=== PATIENT | male | born 1990 | race African-American/Black ===

== ENCOUNTER 2019-03-24 16:28 | Inpatient (IN) | payer OTHER ==
[2019-03-24 20:59] VITALS: BMI 23.2
--- NOTE | 2019-03-24 22:11 | HP ---
CIWA Score Nausea/Vomitin-No Nausea/No Vomiting Muscle Tremors: 1-None Visible, but [place] Anxiety: 4-Mod. Anxious/Guarded Agitation: 4-Moderately Restless Paroxysmal Sweats: 3 Orientation: 0-Oriented Tacttile Disturbances: 2-Mild Itch/Numbness/Burn Auditory Disturbances: 0-None Visual Disturbances: 2-Mild Sensitivity Headache: 2-Mild CIWA-Ar Total Score: 18 - Admission Criteria [facility] Guidelines: Admission for Medically Managed Detox: Requires at least one of the followin. CIWA greater than 12 2. Seizures within the past 24 hours 3. Delirium tremens within the past 24 hours 4. Hallucinations within the past 24 hours 5. Acute intervention needed for co occurring medical disorder 6. Acute intervention needed for co occurring psychiatric disorder 7. Severe withdrawal that cannot be handled at a lower level of care (continued vomiting, continued diarrhea, abnormal vital signs) requiring intravenous medication and/or fluids 8. Patient presents the following: CIWA greater than 12 Admission Criteria Met: Admission criteria met Admission ROS [facility] Chief Complaint: C/O WORSENING WITHDRAWAL SX'S. SEEKING DETOX TXMENT. Allergies/Adverse Reactions: Allergies Allergy/AdvReac Type Severity Reaction Status Date / Time No Known Allergies Allergy Verified 03/24/19 20:46 History of Present Illness: 28 Y.O. MALE WITH HX/O ALCOHOLISM HERE FOR DETOX. CLIENT IS REFERRED BY HIS RESIDENTIAL PROGRAM. THIS IS HIS FIRST ADMISSION HERE. HE REPORTS DRINKING ALCOHOL DAILY. LAST DRINK 1 DAY AGO. PRESENTS WITH C/O WITHDRAWAL SX'S. CIWA 18. REPORTS LONGEST CLEAN TIME 2 WEEKS. DENIES HX/O SEIZURES, BLACKOUTS, SI/HI/ AVH. TRANSITIONAL HOUSING, UNEMPLOYED, DENIES LEGALS Exam Limitations: No Limitations - Ebola screening Have you traveled outside of the country in the last 21 days: No Have you had contact with anyone from an Ebola affected area: No Have you been sick,other than usual withdrawal symptoms: No Do you have a fever: No - Review of Systems Constitutional: Chills, Loss of Appetite, Night Sweats, Changes in sleep EENT: reports: Dental Problems (MISSING TEETH) Respiratory: reports: No Symptoms reported Cardiac: reports: No Symptoms Reported GI: reports: Constipated, Poor Appetite, Poor Fluid Intake : reports: No Symptoms Reported Musculoskeletal: reports: No Symptoms Reported Integumentary: reports: No Symptoms Reported Neuro: reports: No Symptoms reported Endocrine: reports: No Symptoms Reported Hematology: reports: No Symptoms Reported Psychiatric: reports: Orientated x3, Anxious Other Systems: Reviewed and Negative Patient History - Patient Medical History Hx Anemia: No Hx Asthma: No Hx Chronic Obstructive Pulmonary Disease (COPD): No Hx Cancer: No Hx Cardiac Disorders: No Hx Congestive Heart Failure: No Hx Hypertension: No Hx Hypercholesterolemia: No Hx Pacemaker: No HX Cerebrovascular Accident: No Hx Seizures: No Hx Dementia: No Hx Diabetes: No Hx Gastrointestinal Disorders: No Hx Liver Disease: No Hx Genitourinary Disorders: No Hx Sexually Transmitted Disorders: No Hx Renal Disease (ESRD): No Hx Thyroid Disease: No Hx Human Immunodeficiency Virus (HIV): Yes ([id number] TRANSMISSION) Hx Hepatitis C: No Hx Depression: No Hx Suicide Attempt: No Hx Bipolar Disorder: No Hx Schizophrenia: No - Patient Surgical History Past Surgical History: No - PPD History Previous Implant?: Yes Documented Results: Negative w/o proof Implanted On Prior [facility] Admission?: No PPD to be Administered?: Yes - Smoking Cessation Smoking history: Current every day smoker Have you smoked in the past 12 months: Yes Aproximately how many cigarettes per day: 20 Cigars Per Day: 0 Hx Chewing Tobacco Use: No Initiated information on smoking cessation: Yes 'Breaking Loose' booklet given: 03/24/19 - Substance & Tx. History Hx Alcohol Use: Yes Hx Substance Use: Yes Substance Use Type: Alcohol, Marijuana Hx Substance Use Treatment: Yes ([facility]) - Substances abused Crystal meth Substance route: Smoking Frequency: 1-3 times last 30 days Amount used: $125/DAY Age of first use: 26 Date of last use: 03/20/19 Alcohol Substance route: Oral Frequency: Daily Amount used: 1/2 PINT TEQUILA/4 BEERS Age of first use: 22 Date of last use: 03/23/19 Marijuana/Hashish Substance route: Smoking Frequency: Daily Amount used: 8TH Age of first use: 22 Date of last use: 03/24/19 Family Disease History - Family Disease History Family Disease History: Other: Father (HX/O DRUGS), Mother (HX/O CRACK) Admission Physical Exam [facility] - Vital Signs Vital Signs: Vital Signs - 24 hr 03/24/19 20:53 Temperature 99.0 F Pulse Rate 64 Respiratory 16 Rate Blood Pressure 142/92 - Physical General Appearance: Yes: Appropriately Dressed, Anxious HEENTM: Yes: EOMI, Normocephalic, Normal Voice, GEOVANNA, Pharynx Normal Respiratory: Yes: Chest Non-Tender, Lungs Clear, Normal Breath Sounds, No Respiratory Distress, No Accessory Muscle Use Neck: Yes: No masses,lesions,Nodules, Supple, Trachea in good position Breast: Yes: Breast Exam Deferred Cardiology: Yes: Regular Rhythm, Regular Rate, S1, S2 Abdominal: Yes: Normal Bowel Sounds, Non Tender, Soft, Increased Bowel Sounds Genitourinary: Yes: Within Normal Limits Back: Yes: Normal Inspection Musculoskeletal: Yes: full range of Motion, Gait Steady Extremities: Yes: Normal Range of Motion, Non-Tender, Tremors (FELT) Neurological: Yes: Fully Oriented, Alert, Motor Strength 5/5, Depressed Affect Integumentary: Yes: Dry, Warm Lymphatic: Yes: Within Normal Limits - Diagnostic (1) Alcohol dependence with uncomplicated withdrawal Current Visit: Yes Status: Acute (2) Cannabis abuse, uncomplicated Current Visit: Yes Status: Acute (3) Nicotine dependence Current Visit: Yes Status: Chronic Qualifiers: Nicotine product type: cigarettes Substance use status: uncomplicated Qualified Code(s): F17.210 - Nicotine dependence, cigarettes, uncomplicated (4) HIV (human immunodeficiency virus infection) Current Visit: Yes Status: Chronic Qualifiers: HIV symptom status: unspecified Qualified Code(s): B20 - Human immunodeficiency virus [HIV] disease (5) At risk for dehydration due to poor fluid intake Current Visit: Yes Status: Acute Cleared for Admission S - Detox or Rehab [facility] Level of Care: Medically Managed Detox Regimen/Protocol: Librium Claeared for Rehab Admission: No Breathalyzer - Breathalyzer Breathalyzer: 0 Urine Drug Screen - Test Device Lot number: [id number] Expiration date: 10/17/20 - Control Is test valid?: Yes - Results Drug screen NEGATIVE: No Urine drug screen results: THC-Marijuana Inpatient Rehab Admission - Rehab Decision to Admit Inpatient rehab admission?: No
[2019-03-24] MEDS ORDERED: MAGNESIUM HYDROX 2400MG/30ML ORAL SUSPENSION 30 ML CUP PO PRN (22:16)
[2019-03-24] MEDS ORDERED: hydrOXYzine PAMOATE 25 MG CAPSULE (FP) PO PRN (22:16)
[2019-03-24] MEDS ORDERED: P-EPHED 60MG/TRIPROLIDI 2.5MG TABLET PO PRN (22:16)
[2019-03-24] MEDS ORDERED: ONDANSETRON *ODT* 4 MG TABLET SL PRN (22:16)
[2019-03-24] MEDS ORDERED: ACETAMINOPHEN 325 MG TABLET (FP) PO PRN ×2 (22:16)
[2019-03-24] MEDS ORDERED: MAG HYDROX/AL HYDROX/SIMETH 30 ML UNIT-DOSE CUP PO PRN (22:16)
[2019-03-24] MEDS ORDERED: MELATONIN 5 MG TABLETS PO PRN (22:16)
[2019-03-24] MEDS ORDERED: IBUPROFEN 400 MG TABLET (FP) PO PRN ×2 (22:16)
[2019-03-24] MEDS ORDERED: BISMUTH SUBSALICYLATE 524 MG/30 ML UD PO PRN (22:16)
[2019-03-24] MEDS ORDERED: MAGNESIUM CITRATE 300 ML BOTTLE PO PRN (22:16)
[2019-03-24] MEDS ORDERED: NICOTINE POLACRILEX 2 MG GUM BUC PRN (22:16)
[2019-03-24] MEDS ORDERED: METHOCARBAMOL 500 MG TABLET PO PRN (22:16)
[2019-03-24] MEDS ORDERED: MENTHOL/PHENOL 1 EACH UD MM PRN (22:16)
[2019-03-24] MEDS ORDERED: chlordiazePOXIDE HCL 10 MG CAPSULE PO PRN ×2 (22:16→23:46)
[2019-03-24] MEDS ORDERED: guaiFENesin 200 MG/10 ML 10 ML UNIT-DOSE CUPS PO PRN (22:16)
[2019-03-24] MEDS ORDERED: DICYCLOMINE HCL 10 MG CAPSULE PO PRN (22:16)
[2019-03-25] MEDS: chlordiazePOXIDE HCL 25 MG CAPSULE PO SCH ×5 (02:52→12:53)
[2019-03-25] MEDS ORDERED: chlordiazePOXIDE 5 MG CAPSULE PO SCH (05:00)
--- NOTE | 2019-03-25 08:26 | EKG ---
Test Reason : Blood Pressure : / mmHG Vent. Rate : 052 BPM Atrial Rate : 052 BPM P-R Int : 138 ms QRS Dur : 100 ms QT Int : 432 ms P-R-T Axes : 051 072 065 degrees QTc Int : 401 ms SINUS BRADYCARDIA POSSIBLE ACUTE PERICARDITIS ABNORMAL ECG NO PREVIOUS ECGS AVAILABLE Confirmed by KACEY CORDOVA, JESUS ([id number]) on 03/25/2019 8:25:44 AM Referred By: ADDI Confirmed By:JESUS ERAZO MD
[2019-03-25] MEDS: PRENATAL VITAMINS W/ FOLIC ACID TABLET (FP) PO SCH (09:42)
[2019-03-25] MEDS: NICOTINE 21 MG/24 HOURS TOPICAL PATCH TD SCH (09:43)
[2019-03-25] MEDS ORDERED: EFAVIRENZ 600 MG TABLET PO SCH (10:00)
[2019-03-25] MEDS ORDERED: ATRIPLA PO SCH (10:00)
[2019-03-25] MEDS ORDERED: EMTRICITABINE 200MG/TENOFOVIR 300MG PO SCH (10:00)
--- NOTE | 2019-03-25 11:49 | PN ---
S CIWA - CIWA Score Nausea/Vomitin-Mild Nausea/No Vomiting Muscle Tremors: 3 Anxiety: 3 Agitation: 3 Paroxysmal Sweats: 1-Minimal Palms Moist Orientation: 2-Disoriented Date<2 days Tacttile Disturbances: 0-None Auditory Disturbances: 0-None Visual Disturbances: 0-None Headache: 1-Very Mild CIWA-Ar Total Score: 14 S Progress Note (SOAP) Subjective: doing ok with librium protocol patient had ekg on 03/24/19 and 03/25/19 no comparison ekg available at this time 03/25/19 ekg indicates acute pericarditis patient denies chest pain denies shortness of breathe, no dizziness case discussed with MD, continue alcohol and opiate detox keep physical comfort Objective: 03/25/19 13:17 Vital Signs Temperature 96.1 F L 03/25/19 10:17 Pulse Rate 56 L 03/25/19 10:17 Respiratory Rate 18 03/25/19 10:17 Blood Pressure 113/59 L 03/25/19 10:17 O2 Sat by Pulse Oximetry (%) Laboratory Last Values WBC 5.4 K/mm3 (4.0-10.0) 03/25/19 09:40 RBC 4.10 M/mm3 (4.00-5.60) 03/25/19 09:40 Hgb 14.1 GM/dL (11.7-16.9) 03/25/19 09:40 Hct 43.4 % (35.4-49) 03/25/19 09:40 MCV 105.6 fl (80-96) H 03/25/19 09:40 MCH 34.4 pg (25.7-33.7) H 03/25/19 09:40 MCHC 32.6 g/dl (32.0-35.9) 03/25/19 09:40 RDW 14.4 % (11.9-15.9) 03/25/19 09:40 Plt Count 182 K/MM3 (134-434) 03/25/19 09:40 MPV 8.8 fl (7.5-11.1) 03/25/19 09:40 Sodium 139 mmol/L (136-145) 03/25/19 09:40 Potassium 4.0 mmol/L (3.5-5.1) 03/25/19 09:40 Chloride 105 mmol/L (98-107) 03/25/19 09:40 Carbon Dioxide 31 mmol/L (21-32) 03/25/19 09:40 Anion Gap 4 MMOL/L (8-16) L 03/25/19 09:40 BUN 12 mg/dL (7-18) 03/25/19 09:40 Creatinine 0.8 mg/dL (0.55-1.3) 03/25/19 09:40 Creat Clearance w eGFR 115.96 (>60) 03/25/19 09:40 Random Glucose 123 mg/dL (74-106) H 03/25/19 09:40 Calcium 9.0 mg/dL (8.5-10.1) 03/25/19 09:40 Total Bilirubin 0.8 mg/dL (0.2-1) 03/25/19 09:40 AST 16 U/L (15-37) 03/25/19 09:40 ALT 19 U/L (13-61) 03/25/19 09:40 Alkaline Phosphatase 54 U/L (45-117) 03/25/19 09:40 Total Protein 6.1 g/dl (6.4-8.2) L 03/25/19 09:40 Albumin 3.6 g/dl (3.4-5.0) 03/25/19 09:40 lab noted Assessment: 03/25/19 13:17 alcohol withdrawal sx Plan: continue detox
[2019-03-25 12:37] LABS: HEMATOCRIT 43.4 % (35.4-49); HEMOGLOBIN 14.1 GM/dL (11.7-16.9); MCH 34.4 pg (25.7-33.7); MCHC 32.6 g/dl (32.0-35.9); MEAN CELL VOLUME 105.6 fl (80-96); MEAN PLT VOLUME 8.8 fl (7.5-11.1); PLATELET COUNT 182 K/MM3 (134-434); RDW 14.4 % (11.9-15.9); WHITE BLOOD COUNT 5.4 K/mm3 (4.0-10.0)
[2019-03-25 12:51] LABS: ALBUMIN 3.6 g/dl (3.4-5.0); BILIRUBIN,TOTAL 0.8 mg/dL (0.2-1); TOT PROT 6.1 g/dl (6.4-8.2)
--- NOTE | 2019-03-25 15:43 | CONSULT ---
[facility] Psychiatric Consult - Data Date of interview: 03/25/19 Admission source: [facility] Identifying data: First admission to [facility] for this 28 y/o AA male referred by his residential program for detoxification (alcohol, crystal methamphetamine , cannabis). Examined at [address] [place] [address]. Patient is singe, no children, domiciled ( transitional living residence), uneployed and supported on SSI benefits. Substance Abuse History: Confirmed by the patient in this session. Details in current [facility] report : Smoking history: Current every day smoker. Have you smoked in the past 12 months: Yes. Aproximately how many cigarettes per day: 20. Cigars Per Day: 0. Hx Chewing Tobacco Use: No. Initiated information on smoking cessation: Yes. 'Breaking Loose' booklet given: 03/24/19. - Substance & Tx. History. Hx Alcohol Use: Yes. Hx Substance Use: Yes. Substance Use Type : Alcohol, Marijuana. Hx Substance Use Treatment: Yes ([facility]). - Substances abused. Crystal meth. Substance route: Smoking. Frequency: 1-3 times last 30 days. Amount used: $125/DAY. Age of first use: 26. Date of last use: 03/20. Alcohol. Substance route: Oral. Frequency: Daily. Amount used: 1/2 PINT TEQUILA/4 BEERS. Age of first use: 22. Date of last use: 03/23/19. Marijuana/Hashish. Substance route: Smoking. Frequency: Daily. Amount used: 8TH. Age of first use: 22. Date of last use: 03/24/19 Medical History: Bronchial asthma and HIV infection since 2011 (on ART drugs). Psychiatric History: No reported history of psychiatric hospitalizations or OPD care. Patient denies history of suicide attempts. Physical/Sexual Abuse/Trauma History: Patient denies. Additional Comment: Urine drug screen results: THC-Marijuana. Noted. Mental Status Exam - Mental Status Exam Alert and Oriented to: Time, Place, Person Cognitive Function: Good Patient Appearance: Well Groomed Mood: Withdrawn, Hopeful Affect: Appropriate, Normal Range Patient Behavior: Fatigued, Appropriate, Cooperative Speech Pattern: Clear, Appropriate Voice Loudness: Normal Thought Process: Intact, Goal Oriented Thought Disorder: Not Present Hallucinations: Denies Suicidal Ideation: Denies Homicidal Ideation: Denies Insight/Judgement: Poor Sleep: Well Appetite: Good Muscle strength/Tone: Normal Gait/Station: Normal Psychiatric Findings - Problem List ([place] 1, 2,3) (1) Alcohol dependence with uncomplicated withdrawal Current Visit: Yes Status: Acute (2) Cannabis abuse, uncomplicated Current Visit: Yes Status: Chronic (3) Nicotine dependence Current Visit: Yes Status: Chronic Qualifiers: Nicotine product type: cigarettes Substance use status: uncomplicated Qualified Code(s): F17.210 - Nicotine dependence, cigarettes, uncomplicated - Initial Treatment Plan Initial Treatment Plan: Psychoeducation. Sleep hygiene. Support. Motivational counseling. Detoxification. Observation.
[2019-03-25 16:05] LABS: PH,URINE 6.5 (5.0-8.0); URINE APPEARANCE CLEAR; URINE BILIRUBIN NEGATIVE (NEGATIVE); URINE COLOR YELLOW; URINE GLUCOSE (UA) NEGATIVE (NEGATIVE); URINE KETONE NEGATIVE (NEGATIVE); URINE LEUK ESTERASE NEGATIVE (NEGATIVE); URINE NITRITE NEGATIVE (NEGATIVE); URINE PROTEIN NEGATIVE (NEGATIVE)
--- NOTE | 2019-03-25 16:45 | PN ---
MANANS Progress Note Note: received nurse reported that the patient wants to take hiv medication at night change hiv medication time from 10 am to 10 pm
[2019-03-25] MEDS: THIAMINE HCL 100 MG TABLET (FP) PO SCH (22:25)
[2019-03-25] MEDS: EMTRICITABINE 200MG/TENOFOVIR 300MG PO SCH (22:25)
[2019-03-25] MEDS: EFAVIRENZ 600 MG TABLET PO SCH (22:25)
[2019-03-25] MEDS: chlordiazePOXIDE 5 MG CAPSULE PO SCH (22:26)
[2019-03-26] MEDS ORDERED: chlordiazePOXIDE HCL 10 MG CAPSULE PO SCH (05:00)
[2019-03-26] MEDS ORDERED: chlordiazePOXIDE HCL 10 MG CAPSULE PO PRN ×2 (05:00→21:00)
[2019-03-26] MEDS: chlordiazePOXIDE 5 MG CAPSULE PO SCH ×2 (06:20→13:02)
[2019-03-26 09:40] LABS: RPR REACTIVE 1:2 (NONREACTIVE)
[2019-03-26] MEDS: PRENATAL VITAMINS W/ FOLIC ACID TABLET (FP) PO SCH (10:18)
[2019-03-26] MEDS: NICOTINE 21 MG/24 HOURS TOPICAL PATCH TD SCH (10:18)
--- NOTE | 2019-03-26 11:05 | PN ---
[facility] CIWA - CIWA Score Nausea/Vomitin-Mild Nausea/No Vomiting Muscle Tremors: 2 Anxiety: 2 Agitation: 2 Paroxysmal Sweats: 1-Minimal Palms Moist Orientation: 1-Uncertain about Date Tacttile Disturbances: 0-None Auditory Disturbances: 0-None Visual Disturbances: 0-None Headache: 1-Very Mild CIWA-Ar Total Score: 10 S Progress Note (SOAP) Subjective: feeling better today patient has 21 days inpatient rehab facility set up for aftercare patient is positive and optimistic about recovery Objective: 03/26/19 11:02 Vital Signs Temperature 98.1 F 03/26/19 09:44 Pulse Rate 70 03/26/19 09:44 Respiratory Rate 18 03/26/19 09:44 Blood Pressure 103/58 L 03/26/19 09:44 O2 Sat by Pulse Oximetry (%) Laboratory Last Values WBC 5.4 K/mm3 (4.0-10.0) 03/25/19 09:40 RBC 4.10 M/mm3 (4.00-5.60) 03/25/19 09:40 Hgb 14.1 GM/dL (11.7-16.9) 03/25/19 09:40 Hct 43.4 % (35.4-49) 03/25/19 09:40 MCV 105.6 fl (80-96) H 03/25/19 09:40 MCH 34.4 pg (25.7-33.7) H 03/25/19 09:40 MCHC 32.6 g/dl (32.0-35.9) 03/25/19 09:40 RDW 14.4 % (11.9-15.9) 03/25/19 09:40 Plt Count 182 K/MM3 (134-434) 03/25/19 09:40 MPV 8.8 fl (7.5-11.1) 03/25/19 09:40 Sodium 139 mmol/L (136-145) 03/25/19 09:40 Potassium 4.0 mmol/L (3.5-5.1) 03/25/19 09:40 Chloride 105 mmol/L (98-107) 03/25/19 09:40 Carbon Dioxide 31 mmol/L (21-32) 03/25/19 09:40 Anion Gap 4 MMOL/L (8-16) L 03/25/19 09:40 BUN 12 mg/dL (7-18) 03/25/19 09:40 Creatinine 0.8 mg/dL (0.55-1.3) 03/25/19 09:40 Creat Clearance w eGFR 115.96 (>60) 03/25/19 09:40 Random Glucose 123 mg/dL (74-106) H 03/25/19 09:40 Calcium 9.0 mg/dL (8.5-10.1) 03/25/19 09:40 Total Bilirubin 0.8 mg/dL (0.2-1) 03/25/19 09:40 AST 16 U/L (15-37) 03/25/19 09:40 ALT 19 U/L (13-61) 03/25/19 09:40 Alkaline Phosphatase 54 U/L (45-117) 03/25/19 09:40 Total Protein 6.1 g/dl (6.4-8.2) L 03/25/19 09:40 Albumin 3.6 g/dl (3.4-5.0) 03/25/19 09:40 Urine Color Yellow 03/25/19 10:00 Urine Appearance Clear 03/25/19 10:00 Urine pH 6.5 (5.0-8.0) 03/25/19 10:00 Ur Specific [place] 1.017 (1.010-1.035) 03/25/19 10:00 Urine Protein Negative (NEGATIVE) 03/25/19 10:00 Urine Glucose (UA) Negative (NEGATIVE) 03/25/19 10:00 Urine Ketones Negative (NEGATIVE) 03/25/19 10:00 Urine Blood Negative (NEGATIVE) 03/25/19 10:00 Urine Nitrite Negative (NEGATIVE) 03/25/19 10:00 Urine Bilirubin Negative (NEGATIVE) 03/25/19 10:00 Urine Urobilinogen 1.0 mg/dL (0.2-1.0) 03/25/19 10:00 Ur Leukocyte Esterase Negative (NEGATIVE) 03/25/19 10:00 RPR Titer Reactive 1:2 (NONREACTIVE) H 03/25/19 09:40 lab noted 03/26/19 11:05 history of treated syphilis Assessment: 03/26/19 11:05 withdrawal sx Plan: continue detox
[2019-03-26 11:45] LABS: CREATININE 0.8 mg/dL (0.55-1.3)
[2019-03-26 12:50] LABS: TREPONEMA ANTIBODY REACTIVE (NONREACTIVE)
[2019-03-26] MEDS: THIAMINE HCL 100 MG TABLET (FP) PO SCH (22:03)
[2019-03-26] MEDS: chlordiazePOXIDE HCL 10 MG CAPSULE PO SCH (22:03)
[2019-03-26] MEDS: EMTRICITABINE 200MG/TENOFOVIR 300MG PO SCH (22:06)
[2019-03-26] MEDS: EFAVIRENZ 600 MG TABLET PO SCH (22:06)
[2019-03-27 06:18] VITALS: BP 116/70; PULSE 62; TEMP 97.1
[2019-03-27] MEDS: chlordiazePOXIDE HCL 10 MG CAPSULE PO SCH (06:32)
--- NOTE | 2019-03-27 18:48 | DS ---
[facility] Detox Discharge Summary Admission Date: 03/24/19 Discharge Date: 03/27/19 - History Present History: Alcohol Dependence, Cannabis Dependence Additional Comments: PATIENT REFERRED TO [facility] ([place], [place]) FOR AFTERCARE. PATIENT WAS DISCHARGED FROM DETOX UNIT IN STABLE MEDICAL CONDITION. Pertinent Past History: Nicotine Dependence, History Of Syphilis (Treated), H.I.V., Dehydration, - Physical Exam Results Vital Signs: Vital Signs Temperature 97.1 F L 03/27/19 06:17 Pulse Rate 62 03/27/19 06:17 Respiratory Rate 18 03/27/19 06:17 Blood Pressure 116/70 03/27/19 06:17 O2 Sat by Pulse Oximetry (%) Pertinent Admission Physical Exam Findings: WITHDRAWAL SYMPTOMS. Laboratory Tests 03/25/19 03/25/19 03/25/19 09:40 09:40 09:40 WBC 5.4 RBC 4.10 Hgb 14.1 Hct 43.4 MCV 105.6 H MCH 34.4 H MCHC 32.6 RDW 14.4 Plt Count 182 MPV 8.8 Sodium 139 Potassium 4.0 Chloride 105 Carbon Dioxide 31 Anion Gap 4 L BUN 12 Creatinine 0.8 Creat Clearance w eGFR 115.96 Est GFR (CKD-EPI)AfAm 141.89 Est GFR (CKD-EPI)NonAf 122.43 Random Glucose 123 H Calcium 9.0 Total Bilirubin 0.8 AST 16 ALT 19 Alkaline Phosphatase 54 Total Protein 6.1 L Albumin 3.6 Urine Color Urine Appearance Urine pH Ur Specific [place] Urine Protein Urine Glucose (UA) Urine Ketones Urine Blood Urine Nitrite Urine Bilirubin Urine Urobilinogen Ur Leukocyte Esterase RPR Titer Reactive 1:2 H T.pallidum Ab (MHA) Reactive 03/25/19 10:00 WBC RBC Hgb Hct MCV MCH MCHC RDW Plt Count MPV Sodium Potassium Chloride Carbon Dioxide Anion Gap BUN Creatinine Creat Clearance w eGFR Est GFR (CKD-EPI)AfAm Est GFR (CKD-EPI)NonAf Random Glucose Calcium Total Bilirubin AST ALT Alkaline Phosphatase Total Protein Albumin Urine Color Yellow Urine Appearance Clear Urine pH 6.5 Ur Specific [place] 1.017 Urine Protein Negative Urine Glucose (UA) Negative Urine Ketones Negative Urine Blood Negative Urine Nitrite Negative Urine Bilirubin Negative Urine Urobilinogen 1.0 Ur Leukocyte Esterase Negative RPR Titer T.pallidum Ab (MHA) LABS NOTED. - Treatment Hospital Course: Detox Protocol Followed, Detoxed Safely, Responded well, Discharged Condition Good, Rehab Referral Accepted Patient has Accepted a Rehab Referral to: [facility] ([place], [place]). - Medication Discharge Medications: Ambulatory Orders Atripla Tablet 1 PO DAILY 03/24/19 - Diagnosis (1) Alcohol dependence with uncomplicated withdrawal Status: Acute (2) At risk for dehydration due to poor fluid intake Status: Acute (3) Cannabis abuse, uncomplicated Status: Chronic (4) HIV (human immunodeficiency virus infection) Status: Chronic Qualifiers: HIV symptom status: unspecified Qualified Code(s): B20 - Human immunodeficiency virus [HIV] disease (5) Nicotine dependence Status: Chronic Qualifiers: Nicotine product type: cigarettes Substance use status: uncomplicated Qualified Code(s): F17.210 - Nicotine dependence, cigarettes, uncomplicated (6) Syphilis Status: Resolved - AMA Did Patient Leave Against Medical Advice: No
== END 2019-03-27 09:04 | disposition home or self-care (01) | DRG 775 ==
LOC: YASAS 16:28 → Y3N 22:39
PROVIDERS: ADMIT Surgery; ATTEND Surgery
PROC: HZ2ZZZZ Detoxification Services for Substance Abuse Treatment (ICD-10-PCS; principal; 2019-03-24)
DX: F10.230 Alcohol dependence with withdrawal, uncomplicated (principal); F12.10 Cannabis abuse, uncomplicated; F17.210 Nicotine dependence, cigarettes, uncomplicated; Z21 Asymptomatic human immunodeficiency virus [HIV] infection status; R63.8 Other symptoms and signs concerning food and fluid intake; J45.909 Unspecified asthma, uncomplicated; Z87.438 Personal history of other diseases of male genital organs
CPT/HCPCS: 36415; 80053; 81003; 85027; 86593; 86780; 93005; 93010